=== PATIENT | female | born 1965 | race African-American/Black ===

== ENCOUNTER → 2017-01-04 14:56 | Outpatient (CLI) | payer BC | END | disposition home or self-care (01) | LOC: D.MRI 14:56 | DX: M54.5 Low back pain (principal) ==

== ENCOUNTER → 2017-03-20 16:15 | Outpatient (CLI) | payer BC | END | disposition home or self-care (01) | LOC: D.MAMMO 03-08 16:00 | DX: Z12.31 Encounter for screening mammogram for malignant neoplasm of breast (principal) ==